=== PATIENT | female | born 1965 | race Caucasian/White ===

== ENCOUNTER 2019-02-22 07:49 | Day surgery (SDC) | payer BC ==
[~2019-02-22 07:49] MED LIST: Lactated Ringers 1,000 ML IV SCH; Sodium Chloride 0.9% 10 ML Syringe FLUSH PRN
[2019-02-22] MEDS ORDERED: Midazolam 1 MG/ML 2 ML SDV ONE ×3 (08:34→10:15)
[2019-02-22] MEDS ORDERED: Propofol 200 MG/20 ML SDV ONE ×2 (08:35→09:47)
[2019-02-22] MEDS ORDERED: Albuterol/Ipratropium 3.0-0.5 MG/3 ML Neb Soln NEB ONE (09:03)
--- NOTE | 2019-02-22 09:33 | PCM.PN ---
- General Info Date of Service: 02/22/19 - Review of Systems Systems Review Comment:: 53 y/o female here for screening colonoscopy. She is medically stable to proceed. Her recent H and P is reviewed and no significant changes are noted. I discussed the proposed colonoscopy with the patient. Risks such as but not limited to bleed and GI injury discussed and she agrees to proceed. - Patient Data Vitals - Most Recent: Last Vital Signs Temp 98.2 F 02/22/19 08:41 Pulse 87 02/22/19 08:41 Resp 20 02/22/19 08:41 BP 119/60 02/22/19 08:41 Pulse Ox 95 02/22/19 08:41 Weight - Most Recent: 109.769 kg Lab Results Last 24 Hours: Laboratory Results - last 24 hr 02/22/19 Range/Units 08:35 POC Glucose 144 H (65-110) mg/dl Med Orders - Current: Current Medications Lactated Ringer's (Ringers, Lactated) 1,000 mls @ 125 mls/hr IV ASDIRECTED [place] Last Admin: 02/22/19 08:57 Dose: 125 mls/hr Sodium Chloride (Saline Flush) 10 ml FLUSH ASDIRECTED PRN PRN Reason: Keep Vein Open Discontinued Medications Albuterol/Ipratropium (Duoneb 3.0-0.5 Mg/3 Ml) 3 ml NEB ONETIME ONE Stop: 02/22/19 09:04 Last Admin: 02/22/19 09:10 Dose: 3 ml Midazolam HCl (Versed 1 Mg/Ml) Confirm Administered Dose 2 mg .ROUTE .STK-MED ONE Stop: 02/22/19 08:35 Propofol (Diprivan 20 Ml) Confirm Administered Dose 400 mg .ROUTE .STK-MED ONE Stop: 02/22/19 08:36 Sepsis Event Note - Focused Exam Vital Signs: Vital Signs Temp Pulse Resp BP Pulse Ox 02/22/19 08:41 98.2 F 87 20 119/60 95 Date Exam was Performed: 02/22/19 Time Exam was Performed: 09:31 - Problem List Review Problem List Initiated/Reviewed/Updated: Yes - Assessment Assessment:: Colon cancer screening - Plan Plan:: Colonoscopy
--- NOTE | 2019-02-22 10:06 | PCM.OPNOTE ---
- General Post-Op/Procedure Note Date of Surgery/Procedure: 02/22/19 Operative Procedure(s): Colonoscopy Findings: External hemorrhoids Colon appears normal Pre Op Diagnosis: Colon Cancer Screening Post-Op Diagnosis: hemorrhoids Anesthesia Technique: MAC Primary Surgeon: Anthony Bourgeois Pathology: none EBL in mLs: 0 Complications: None Condition: Good
[2019-02-22 14:39] VITALS: BP 118/54; PULSE 70
--- NOTE | 2019-02-22 16:23 | OR ---
Date of Procedure: 02/22/2019 PREOPERATIVE DIAGNOSIS: Colon cancer screening. POSTOPERATIVE DIAGNOSIS: External hemorrhoids with normal colon. OPERATIONS PERFORMED: Colonoscopy. INDICATIONS FOR SURGERY: This 53-year-old female is seen today for colonoscopy. It has been more than 10 years since her last colonoscopy. FINDINGS: The patient's colon appears normal. She does have moderate-sized external hemorrhoids. PROCEDURE IN DETAIL: The patient was taken to the operating room. She was given intravenous sedation and with her in the left lateral decubitus position, digital rectal exam was performed. No rectal masses were noted. The Olympus colonoscope was inserted into the rectum. Retroflexed examination of the rectal canal was performed. The scope was then carefully advanced under direct visualization through the entire length of the colon until the cecum was reached. Cecal acquisition was confirmed by noting the normal internal cecal anatomy including the appendiceal orifice and ileocecal valve. The light was also noted to transilluminate the abdominal wall in the right lower quadrant. After carefully examining the cecum, the scope was slowly withdrawn sequentially re-examining the colonic segments until the entire colon and rectum had been fully examined. The scope was removed and the patient was taken from the operating room in satisfactory condition. ESTIMATED BLOOD LOSS: Zero. COMPLICATIONS: None. PROGNOSIS: Good. YESSICA Bourgeois MD /[id number]
== END 2019-02-22 11:25 | disposition home or self-care (01) ==
LOC: LL.SDS 07:49
PROVIDERS: ATTEND Surgery
DX: Z12.11 Encounter for screening for malignant neoplasm of colon (principal); K64.4 Residual hemorrhoidal skin tags; E11.69 Type 2 diabetes mellitus with other specified complication; E78.5 Hyperlipidemia, unspecified; I50.22 Chronic systolic (congestive) heart failure; I25.2 Old myocardial infarction; F33.1 Major depressive disorder, recurrent, moderate; F17.210 Nicotine dependence, cigarettes, uncomplicated; E66.01 Morbid (severe) obesity due to excess calories; Z68.41 Body mass index [BMI] 40.0-44.9, adult; Z79.4 Long term (current) use of insulin; Z79.82 Long term (current) use of aspirin; Z79.899 Other long term (current) drug therapy; Z88.0 Allergy status to penicillin; Z88.8 Allergy status to other drugs, medicaments and biological substances
CPT/HCPCS: 82962; 87804; 94640; J2250; J2704; J7120; J7620-GY